=== PATIENT | female | born 1975 | race Caucasian/White ===

== ENCOUNTER 2020-11-01 18:03 | Outpatient (REF) | payer BC, SELFPAY | END 2020-11-01 18:04 | disposition home or self-care (01) | LOC: HO.LNP 18:03 | PROVIDERS: Visit Provider Family Medicine | DX: Z20.822 Contact with and (suspected) exposure to COVID-19 (principal); R05 Cough | CPT/HCPCS: U0003; U0005 ==

== ENCOUNTER 2022-09-23 09:07 | Emergency (ER) | payer BC, SELFPAY ==
--- NOTE | ~2022-09-23 | XR_ITS ---
EXAMINATION: XR CHEST CLINICAL INFORMATION: Chest pain. COMPARISON: None TECHNIQUE: 2 views of the chest were obtained. FINDINGS: No significant abnormality is noted involving the heart, lungs, mediastinum, bony thorax or soft tissues. XR/XR chest 2V IMPRESSION: No acute cardiopulmonary process.
--- NOTE | 2022-09-23 09:17 | ECG_ITS ---
Test Reason : cp Blood Pressure : / mmHG Vent. Rate : 103 BPM Atrial Rate : 103 BPM P-R Int : 124 ms QRS Dur : 078 ms QT Int : 346 ms P-R-T Axes : 083 088 054 degrees QTc Int : 453 ms Sinus tachycardia Possible Left atrial enlargement Nonspecific ST changes Abnormal ECG No previous ECGs available Referred By: Generic ED Physician Electronically Signed By:Cecilio Blackmon
[2022-09-23 09:20] VITALS: BP 132/59; PULSE 112; RESP 18; TEMP 36.1; O2SAT 100; BMI 23.3
[2022-09-23 09:42] LABS: MANUAL DIFF FLAG NO
[2022-09-23 09:45] LABS: Basophils Percent Auto 0.6 % (0-2); Eosinophils Absolute Auto 0.1 X10*3/uL (0.0-0.4); Eosinophils Percent Auto 1.3 % (0-4); Hematocrit 42.4 % (37.0-47.0); Imm Gran Abs Auto 0.02 X10*3/uL (0.00-0.03); Imm Gran Pct Auto 0.3 % (0.0-0.4); Lymphocytes Absolute Auto 2.2 X10*3/uL (1.2-4.9); Lymphocytes Percent Auto 34.3 % (20-40); Mean Corpuscular Volume 93.8 fL (80.0-98.0); Mean Platelet Volume 8.7 fL (9.4-12.3); Monocytes Absolute Auto 0.4 X10*3/uL (0.1-1.2); Monocytes Percent Auto 5.6 % (2-11); Neutrophils Absolute Auto 3.6 x10*3/uL (2.0-8.3); Neutrophils Percent Auto 57.9 % (45-73); Platelet Count 282 X10*3/uL (160-400); Red Blood Count 4.52 X10*6/uL (4.20-5.50); Red Cell Distribution Width 11.9 % (11.0-16.0); White Blood Count 6.3 X10*3/uL (4.8-10.8)
[2022-09-23 10:01] LABS: Anion Gap 12 (12-20); Blood Urea Nitrogen 12 mg/dL (9-16); Calcium 9.6 mg/dL (8.4-10.2); Carbon Dioxide 30 mmol/L (22-29); Chloride 104 mmol/L (96-108); Estimated Glomerular Filt Rate > 60; Glucose Random 109 mg/dL (60-115); Sodium 142 mmol/L (135-145)
[2022-09-23 10:08] LABS: Troponin-I High Sensitivity < 3.5 ng/L (<3.5-17.0)
--- NOTE | 2022-09-23 10:50 | ED_ITS ---
HPI - Chest Pain General Chief Complaint: Chest Pain Stated Complaint: chest pain Time Seen by Provider: 09/23/22 10:48 Source: patient Mode of arrival: ambulatory Limitations: no limitations History of Present Illness HPI narrative: 47-year-old female presents respond complaining of chest pain for past 3 days. Patient has a falls or injuries she denies cough fever she states she has been having a problem intermittently in the past his images from last night in for evaluation. She denies any history of GA definitely age. Pain is on the left sided with radiation to left shoulder. Now dull ache with pressure. Some associated shortness of breath related to wearing a mask. PSH: hyst on estradiol complaint: chest pain Related Data Home Medications Medication Instructions Recorded Confirmed adrenal cortex (porcine) 80 mg 80 mg PO DAILY 09/23/22 09/23/22 tablet biotin 800 mcg tablet 800 mcg PO DAILY 09/23/22 09/23/22 cholecalciferol (vitamin D3) 125 125 mcg PO DAILY 09/23/22 09/23/22 mcg (5,000 unit) tablet (Vitamin D3) estradiol 0.5 mg tablet 1.5 mg PO DAILY 09/23/22 09/23/22 fluoxetine 40 mg capsule 40 mg PO DAILY 09/23/22 09/23/22 levothyroxine 25 mcg tablet 25 mcg PO SUTUTHSA@0630 09/23/22 09/23/22 levothyroxine 25 mcg tablet 50 mcg PO MOWEFR@0630 09/23/22 09/23/22 liothyronine 5 mcg tablet 5 mcg PO DAILY 09/23/22 09/23/22 methylphenidate HCl 54 mg 54 mg PO DAILY 09/23/22 09/23/22 tablet,extended release 24 hr multivitamin-ferrous 1 tab PO DAILY 09/23/22 09/23/22 fumarate-folic acid 18 mg-400 mcg tablet Previous Rx's Medication Instructions Recorded prednisone 20 mg tablet 60 mg PO DAILY Asthma 5 days #15 09/23/22 tabs Allergies Allergy/AdvReac Type Severity Reaction Status Date / Time acetaminophen [From Percocet] Allergy Anaphylaxis Verified 09/23/22 09:27 codeine Allergy Rash Verified 09/23/22 09:27 hydromorphone [From Dilaudid] Allergy Anaphylaxis Verified 09/23/22 09:27 oxycodone [From Percocet] Allergy Anaphylaxis Verified 09/23/22 09:27 Review of Systems Review of Systems: Review of systems: General: Patient denies any fever chills recent illness or falls Musculoskeletal: Denies back pain or body aches or other injuries HEENT: denies headache, runny nose, ear pain Respiratory: denies shortness of breath, cough Cardiovascular: chest pain no palpitations : denies dysuria, frequency Abdomen: no nausea vomiting denies abdominal pain Extremities: no swelling, no pain Skin: no diaphoresis Yes all other systems are reviewed and are negative PMFSH Past Medical History Medical History (Updated 09/23/22 @ 15:33 by Sean Albrecht DO) Chronic fatigue syndrome Hormone replacement therapy Hypothyroidism Surgical History (Updated 09/23/22 @ 11:09 by Oanh Shields) History of hysterectomy Social History Social History Alcohol intake: never Smoked in Last 30 Days: No Use of substances other than those prescribed or required for medical reasons: No Advance Directives: Yes Advance Directives Information Provided: No Advance Directives on File: No Patient : No Physical Exam Vital Signs: Vital Signs: Last Vital Signs Temp 97.5 F 09/23/22 14:19 Pulse 89 09/23/22 14:19 Resp 16 09/23/22 14:19 BP 100/53 L 09/23/22 14:19 Pulse Ox 100 09/23/22 14:19 O2 Del Method 09/23/22 14:19 BMI result Body Mass Index 23.3 General: Well-appearing well-nourished in no signs of distress HEENT: Normocephalic atraumatic Neck: No signs of JVD, no masses no tenderness or lymphadenopathy Cardiovascular: Regular rate and rhythm Respiratory: Clear to auscultation bilaterally Abdomen: Soft nontender no masses rectal exam performed guiac negative production quality analyst confirmed. Extremities: Normal pedal pulses no signs of edema Skin: Dry warm no rashes Back: No tenderness full ROM Medications Administered Discontinued Medications Generic Name Dose Route Start Last Admin Trade Name Freq PRN Reason Stop Dose Admin Sodium Chloride 1,000 mls @ 999 mls/hr 09/23/22 11:15 09/23/22 12:35 Ns IV 09/23/22 12:15 Infused .Q1H1M FELIX Infusion Ketorolac Tromethamine 15 mg 09/23/22 11:17 09/23/22 11:34 Ketorolac Tromethamine 15 Mg/Ml Vial IVPUSH 09/23/22 11:18 15 mg ONCE ONE Administration Medical Decision Making Medical Decision Making MDM Narrative: XR and labs for ACS are all negative but since she does have pain still was tachycardic I want to get a Ddimer. I will give her toradol for pain at this time. Prolonged wait for Ddimer due to issues with the order and redraws. IT is negative. Likely musculoskeletal. I will start on prednisone and send home with PCp follow up. Differential Diagnosis Differential Diagnoses: The differential diagnosis associated with the presentation includes Differential diagnosis: PE, pneumonia, ACS pneumothorax, less likely esophageal rupture. I feel with three days of symptoms unlikely ACS she was tachycardic and feels short of breath and is on estradiol Admission/Observation Consideration of admission/observation: Escalation of care including admission/observation considered Consult Healthcare Provider Management of the patient was discussed with: Hospitalist Lab Data MDM Lab Attestation statement: I reviewed the patient's lab results. 09/23/22 09:37 09/23/22 09:37 Labs: Lab Results 09/23/22 09/23/22 09/23/22 Range/Units 09:37 09:37 09:37 WBC 6.3 (4.8-10.8) X10*3/uL RBC 4.52 (4.20-5.50) X10*6/uL Hgb 14.0 (12.0-16.0) g/dl Hct 42.4 (37.0-47.0) % MCV 93.8 (80.0-98.0) fL MCH 31.0 (27.0-33.0) pg MCHC 33.0 (31.0-35.0) g/dl RDW 11.9 (11.0-16.0) % Plt Count 282 (160-400) X10*3/uL MPV 8.7 L (9.4-12.3) fL Immature Gran % (Auto) 0.3 (0.0-0.4) % Neut % (Auto) 57.9 (45-73) % Lymph % (Auto) 34.3 (20-40) % [place] % (Auto) 5.6 (2-11) % Eos % (Auto) 1.3 (0-4) % Baso % (Auto) 0.6 (0-2) % Lymph # (Auto) 2.2 (1.2-4.9) X10*3/uL [place] # (Auto) 0.4 (0.1-1.2) X10*3/uL Eos # (Auto) 0.1 (0.0-0.4) X10*3/uL Baso # (Auto) 0.0 (0.0-0.2) X10*3/uL Abs Immat Gran (auto) 0.02 (0.00-0.03) X10*3/uL Absolute Neuts (auto) 3.6 (2.0-8.3) x10*3/uL Absolute Nucleated RBC 0.000 (0.0-0.012) X10*3/uL Nucleated RBC % (auto) 0.0 (0.0-0.2) /100WBC D-Dimer High Sensitivty NG/ML Sodium 142 (135-145) mmol/L Potassium 4.0 (3.3-5.1) mmol/L Chloride 104 (96-108) mmol/L Carbon Dioxide 30 H (22-29) mmol/L Anion Gap 12 (12-20) BUN 12 (9-16) mg/dL Creatinine 0.77 (0.5-1.4) mg/dL Estim Creat Clear Calc 83.0 Estimated GFR > 60 Random Glucose 109 (60-115) mg/dL Calcium 9.6 (8.4-10.2) mg/dL Troponin I High Sens < 3.5 (<3.5-17.0) ng/L 09/23/22 Range/Units 14:22 WBC (4.8-10.8) X10*3/uL RBC (4.20-5.50) X10*6/uL Hgb (12.0-16.0) g/dl Hct (37.0-47.0) % MCV (80.0-98.0) fL MCH (27.0-33.0) pg MCHC (31.0-35.0) g/dl RDW (11.0-16.0) % Plt Count (160-400) X10*3/uL MPV (9.4-12.3) fL Immature Gran % (Auto) (0.0-0.4) % Neut % (Auto) (45-73) % Lymph % (Auto) (20-40) % [place] % (Auto) (2-11) % Eos % (Auto) (0-4) % Baso % (Auto) (0-2) % Lymph # (Auto) (1.2-4.9) X10*3/uL [place] # (Auto) (0.1-1.2) X10*3/uL Eos # (Auto) (0.0-0.4) X10*3/uL Baso # (Auto) (0.0-0.2) X10*3/uL Abs Immat Gran (auto) (0.00-0.03) X10*3/uL Absolute Neuts (auto) (2.0-8.3) x10*3/uL Absolute Nucleated RBC (0.0-0.012) X10*3/uL Nucleated RBC % (auto) (0.0-0.2) /100WBC D-Dimer High Sensitivty 164 NG/ML Sodium (135-145) mmol/L Potassium (3.3-5.1) mmol/L Chloride (96-108) mmol/L Carbon Dioxide (22-29) mmol/L Anion Gap (12-20) BUN (9-16) mg/dL Creatinine (0.5-1.4) mg/dL Estim Creat Clear Calc Estimated GFR Random Glucose (60-115) mg/dL Calcium (8.4-10.2) mg/dL Troponin I High Sens (<3.5-17.0) ng/L Independent Interpretation I performed an independent interpretation of an: EKG Interpretation: Rate 103 sinus tachycardia normal intervals no signs of ischemia Radiology Impression Discussion of test interpretation with radiology: I have reviewed the radiologist's reading. External Record Review External record reviewed: Inpatient record and Outpatient record Scores Heart Score History: -0- slightly suspicious ECG: -0- normal Age: -0- < or = 45 Risk factory: -0- no risk factors known Troponin: -0- < or = normal limit Score: 0 Risk: 1.7% Discharge Plan Discharge Clinical Impression: Chest pain Patient Disposition: Home, Self-Care Instructions: Chest Pain (DC) Additional Instructions: Please call to follow up for your chest pain. If you have any other concerns please return to the ED. Prescriptions: New prednisone 20 mg tablet 60 mg PO DAILY 5 Days Qty: 15 0RF No Action fluoxetine 40 mg capsule 40 mg PO DAILY methylphenidate HCl 54 mg tablet extended release 24hr 54 mg PO DAILY liothyronine 5 mcg tablet 5 mcg PO DAILY Rx Instructions: take 30 minutes before a meal levothyroxine 25 mcg tablet 25 mcg PO SUTUTHSA@0630 levothyroxine 25 mcg tablet 50 mcg PO MOWEFR@0630 estradiol 0.5 mg tablet 1.5 mg PO DAILY cholecalciferol (vitamin D3) [Vitamin D3] 125 mcg (5,000 unit) Tablet 125 mcg PO DAILY biotin 800 mcg Tablet 800 mcg PO DAILY adrenal cortex (porcine) 80 mg Tablet 80 mg PO DAILY Daily Multi 18-400 mg-mcg Tablet 1 tab PO DAILY Referrals: Martin Huizar MD [Primary Care Provider] - (Please call to follow up.)
[2022-09-23 10:51] VITALS: BP 126/84; PULSE 89; RESP 16; O2SAT 99
[2022-09-23 11:11] VITALS: BP 120/79; PULSE 92; RESP 20; TEMP 36.6; O2SAT 100
--- NOTE | 2022-09-23 11:20 | PC.NURSE ---
pt AOx3. VSS. awaiting lab results and Xray. nuclear monitoring technician intact. will continue to monitor.
[2022-09-23 11:27] VITALS: BP 107/68; PULSE 77; RESP 13; TEMP 36.9; O2SAT 100
[2022-09-23] MEDS: Ketorolac Tromethamine 15 MG/ML VIAL IVPUSH ×2 (11:34→16:01)
[2022-09-23] MEDS: 0.9 % Sodium Chloride 1,000 ML 999 ML IV (11:34)
--- NOTE | 2022-09-23 11:35 | PC.NURSE ---
IV inserted. Fluids running per order. Pt medicated for pain per order.
--- NOTE | 2022-09-23 12:05 | PHA.MEDREC ---
Pharmacy Consult ? Medication Reconciliation Pharmacy has completed the medication reconciliation. Patient had a medication list on her phone that she read off and confirmed all of her medications for me.
[2022-09-23 14:19] VITALS: BP 100/53; PULSE 89; RESP 16; TEMP 36.4; O2SAT 100
[2022-09-23 14:37] LABS: D Dimer High Sensitivity 164 NG/ML
[2022-09-23] MEDS: predniSONE 20 MG TABLET 60 MG PO (16:02)
--- NOTE | 2022-09-23 16:05 | PC.NURSE ---
pt medicated for pain prior to dischage
== END 2022-09-23 16:06 | disposition home or self-care (01) ==
PROVIDERS: Emergency Provider Student in an Organized Health Care Education/Training Program; PCP Family Medicine
DX: R07.9 Chest pain, unspecified (principal)
CPT/HCPCS: 36415; 71046; 80048; 84484; 85025; 85379; 93005; 96361; 96374; 96376; 99284; 99285; J1885